=== PATIENT | female | born 1985 | race Two or more races ===

== ENCOUNTER → 2017-03-13 | Emergency (ER) | payer MEDICAID ==
[~2017-03-13] VITALS: Ht 162.6 cm; Wt 64.9 kg
[~2017-03-13] MED LIST: IBUPROFEN 600 MG TABLET PO ONE
[2017-03-13 19:11] VITALS: BP 136/91
== END | disposition home or self-care (01) ==
LOC: ER 19:15
DX: S39.012A Strain of muscle, fascia and tendon of lower back, initial encounter (principal); M54.42 Lumbago with sciatica, left side; N64.3 Galactorrhea not associated with childbirth; V49.49XA Driver injured in collision with other motor vehicles in traffic accident, initial encounter; Y93.89 Activity, other specified; Y92.89 Other specified places as the place of occurrence of the external cause; Y99.9 Unspecified external cause status
CPT/HCPCS: 72100; 99284; A4606; Z7610

== ENCOUNTER 2017-03-22 11:21 | Emergency (ER) | payer MEDICAID ==
[~2017-03-22] VITALS: Ht 162.6 cm; Wt 64.9 kg
[2017-03-22 11:21] VITALS: BP 142/76
--- NOTE | 2017-03-22 11:44 | NUR ---
SEEN BY DR ROWE AND REFUSE TO BE TRIAGED
== END 2017-03-22 12:42 | disposition home or self-care (01) ==
LOC: ER 11:23
DX: S39.012A Strain of muscle, fascia and tendon of lower back, initial encounter (principal); Z39.1 Encounter for care and examination of lactating mother; V89.2XXA Person injured in unspecified motor-vehicle accident, traffic, initial encounter; Y93.89 Activity, other specified; Y92.89 Other specified places as the place of occurrence of the external cause; Y99.9 Unspecified external cause status
CPT/HCPCS: A4606; Z7610

== ENCOUNTER 2017-09-16 11:47 | Emergency (ER) | payer MEDICAID ==
[~2017-09-16] VITALS: Ht 162.6 cm; Wt 64.9 kg
[2017-09-16 11:52] VITALS: BP 126/77
== END 2017-09-16 12:08 | disposition home or self-care (01) ==
LOC: ER 11:49
DX: J02.0 Streptococcal pharyngitis (principal)
CPT/HCPCS: 99283; A4606; Z7610

== ENCOUNTER 2017-11-02 09:28 | Emergency (ER) | payer MEDICAID ==
[~2017-11-02] VITALS: Ht 162.6 cm; Wt 68.0 kg
[2017-11-02 09:43] VITALS: BP 136/87
== END 2017-11-02 11:22 | disposition left against medical advice (07) ==
LOC: ER 09:31
DX: R39.15 Urgency of urination (principal); Z53.21 Procedure and treatment not carried out due to patient leaving prior to being seen by health care provider
CPT/HCPCS: A4606; Z7610